=== PATIENT | female | born 1990 | race Caucasian/White ===

== ENCOUNTER 2017-08-04 07:31 | Observation (INO) ==
--- NOTE | 2017-08-04 07:50 | Emergency Department Note ---
Disposition Clinical Impression: Pyelonephritis, Leukocytosis, Tachycardia, Sepsis Disposition: Admitted As Inpatient Condition: Good General Adult HPI - General Chief complaint: ED Abdominal Pain Stated complaint: ABD Pain Time Seen by Provider: 08/04/17 07:47 Source: patient Limitations: no limitations - History of Present Illness Pain Scale: 8 - Related Data Home Medications Medication Instructions Recorded Confirmed Norgestimate-Ethinyl Estradiol 1 tab PO DAILY 08/04/17 08/04/17 [Tri-Sprintec Tablet] Allergies Allergy/AdvReac Type Severity Reaction Status Date / Time hydrocodone [From Vicodin] Allergy See Verified 09/15/15 16:31 Comments Penicillins Allergy See Verified 09/15/15 16:31 Comments Past Medical History - Past Medical History Medical history: Reports: fibromyalgia, RA, other Surgical history: Reports: Psychiatric history: Reports: anxiety - Social History Smoking Status: Current every day smoker Smokeless Tobacco Status: No Alcohol use: Reports: none Drug use: Reports: none Physical Exam - General Limitations: no limitations General appearance: alert, in no apparent distress Course Vital Signs Temperature 98.2 F 08/04/17 07:34 Pulse Rate 133 08/04/17 07:34 Respiratory Rate 16 08/04/17 07:34 Blood Pressure 125/82 08/04/17 07:34 O2 Sat by Pulse Oximetry 100 08/04/17 07:34 Temperature 97.7 F 08/05/17 10:28 Pulse Rate 98 08/05/17 10:28 Respiratory Rate 16 08/05/17 10:28 Blood Pressure 110/71 08/05/17 10:28 O2 Sat by Pulse Oximetry 99 08/05/17 10:28 Oxygen Delivery Oxygen Delivery Room Air Medical Decision Making - Lab Data Result diagrams: 08/05/17 04:33 08/05/17 04:33 Lab Results 08/04/17 08/04/17 08/04/17 Range/Units 07:46 07:46 09:05 WBC 12.9 H (4.3-11.1) K/mcL RBC 4.97 (3.82-4.97) M/mcL Hgb 14.3 (11.5-15.4) g/dL Hct 43.0 (35.3-44.9) % MCV 86.5 (83.0-100.0) fL MCH 28.8 (28.0-33.3) pg MCHC 33.3 (31.6-35.5) g/dL RDW 12.6 (11.5-14.5) % Plt Count 353 (140-400) K/mcL MPV 9.4 (9.4-12.4) fL Immature Gran % 0.5 (0-4) % Seg Neutrophils % 69.7 % Lymphocytes % 19.7 % Monocytes % 7.4 % Eosinophils % 2.2 % Basophils % 0.5 % Neutrophils # 9.0 H (1.6-8.9) K/mcL Lymphocytes # 2.5 (0.6-4.6) K/mcL Monocytes # 1.0 (0.0-1.3) K/mcL Eosinophils # 0.3 (0.0-0.6) K/mcL Basophils # 0.1 (0.0-0.2) K/mcL Sodium (136-145) mEq/L Potassium (3.5-4.5) mEq/L Chloride (98-109) mEq/L Carbon Dioxide (19-29) mEq/L BUN (7-20) mg/dL Creatinine (0.57-1.11) mg/dL Est GFR ( Amer) (> 60) Est GFR (Non-Af Amer) (> 60) BUN/Creatinine Ratio (6-26) Glucose (70-99) mg/dL Calculated Osmolality (280-300) Lactic Acid (0.5-2.2) mmol/L Calcium (8.6-10.8) mg/dL Phosphorus (2.3-4.7) mg/dL Magnesium (1.6-2.6) mg/dL Total Bilirubin (0.2-1.2) mg/dL Direct Bilirubin (0.0-0.5) mg/dL Indirect Bilirubin (0.0-1.2) mg/dL AST (5-34) Units/L ALT (0-55) Units/L Alkaline Phosphatase (38-126) Units/L Serum Total Protein (6.0-8.3) g/dL Albumin (3.5-5.0) g/dL Globulin (2.4-3.5) g/dL Albumin/Globulin Ratio (1.1-2.2) Lipase (8-78) Units/L Urine Color Yellow (Yellow) Urine Clarity Cloudy A (Clear) Urine pH 6.5 (5.0-8.0) pH Units Ur Specific [employer] 1.019 (1.010-1.025) Urine Protein Negative (Neg-Trace) mg/dL Urine Glucose (UA) Normal (Normal) mg/dL Urine Ketones Negative (Negative) mg/dL Urine Blood Large H (Negative) Urine Nitrite Positive A (Negative) Urine Bilirubin Negative (Negative) Urine Urobilinogen Normal (Normal) mg/dL Ur Leukocyte Esterase Moderate H (Negative) Urine Microscopic RBC 3-5 H (0-3) per hpf Urine Microscopic WBC 5-15 H (0-3) per hpf Ur Squamous Epith Cells Few (None-Few) per lpf Urine Bacteria Many H (None-Few) per hpf Hyaline Casts None Seen (None-Few) per lpf Ur Culture Indicated? YES A (NO) Urine Test Negative (Negative) 08/04/17 08/04/17 08/04/17 Range/Units 09:05 10:59 10:59 WBC (4.3-11.1) K/mcL RBC (3.82-4.97) M/mcL Hgb (11.5-15.4) g/dL Hct (35.3-44.9) % MCV (83.0-100.0) fL MCH (28.0-33.3) pg MCHC (31.6-35.5) g/dL RDW (11.5-14.5) % Plt Count (140-400) K/mcL MPV (9.4-12.4) fL Immature Gran % (0-4) % Seg Neutrophils % % Lymphocytes % % Monocytes % % Eosinophils % % Basophils % % Neutrophils # (1.6-8.9) K/mcL Lymphocytes # (0.6-4.6) K/mcL Monocytes # (0.0-1.3) K/mcL Eosinophils # (0.0-0.6) K/mcL Basophils # (0.0-0.2) K/mcL Sodium 140 (136-145) mEq/L Potassium 3.7 (3.5-4.5) mEq/L Chloride 105 (98-109) mEq/L Carbon Dioxide 27 (19-29) mEq/L BUN 6 L (7-20) mg/dL Creatinine 0.67 (0.57-1.11) mg/dL Est GFR ( Amer) > 60 (> 60) Est GFR (Non-Af Amer) > 60 (> 60) BUN/Creatinine Ratio 9 (6-26) Glucose 86 (70-99) mg/dL Calculated Osmolality 287 (280-300) Lactic Acid 1.1 (0.5-2.2) mmol/L Calcium 9.4 (8.6-10.8) mg/dL Phosphorus 2.8 (2.3-4.7) mg/dL Magnesium 2.0 (1.6-2.6) mg/dL Total Bilirubin 0.2 (0.2-1.2) mg/dL Direct Bilirubin 0.1 (0.0-0.5) mg/dL Indirect Bilirubin 0.1 (0.0-1.2) mg/dL AST 16 (5-34) Units/L ALT 27 (0-55) Units/L Alkaline Phosphatase 111 (38-126) Units/L Serum Total Protein 7.7 (6.0-8.3) g/dL Albumin 3.5 (3.5-5.0) g/dL Globulin 4.2 H (2.4-3.5) g/dL Albumin/Globulin Ratio 0.8 L (1.1-2.2) Lipase 11 (8-78) Units/L Urine Color (Yellow) Urine Clarity (Clear) Urine pH (5.0-8.0) pH Units Ur Specific [employer] (1.010-1.025) Urine Protein (Neg-Trace) mg/dL Urine Glucose (UA) (Normal) mg/dL Urine Ketones (Negative) mg/dL Urine Blood (Negative) Urine Nitrite (Negative) Urine Bilirubin (Negative) Urine Urobilinogen (Normal) mg/dL Ur Leukocyte Esterase (Negative) Urine Microscopic RBC (0-3) per hpf Urine Microscopic WBC (0-3) per hpf Ur Squamous Epith Cells (None-Few) per lpf Urine Bacteria (None-Few) per hpf Hyaline Casts (None-Few) per lpf Ur Culture Indicated? (NO) Urine Test (Negative) Attestation Statement - Attestation Attestation: I examined this patient and my medical decision-making was reviewed with the Resident Physician. I agree with the documented findings, disposition and treatment plan as described except to the extent set forth below. [id number] time provided Left sided lower back pain and bilateral lower abdominal pain. She states she had similar pain years ago with a ruptured ovarian cyst. She is tachycardic but does not appear in any acute distress
[2017-08-04 08:00] LABS: Bilirubin,Urine Negative (Negative); Blood,Urine Large (Negative); Clarity,Urine Cloudy (Clear); Color,Urine Yellow (Yellow); Glucose,Urine (UA) Normal (Normal); Ketones,Urine Negative (Negative); Leukocyte Esterase,Urine Moderate (Negative); Nitrite,Urine Positive (Negative); PH,Urine 6.5 pH Units (5.0-8.0); Protein,Urine Negative (Neg-Trace); Specific Gravity,Urine 1.019 (1.010-1.025); Urobilinogen,Urine Normal (Normal)
[2017-08-04 08:03] LABS: Bacteria,Urine Many per hpf (None-Few); Hyaline Casts,Urine None Seen per lpf (None-Few)
[2017-08-04 08:12] LABS: Squamous Epithelial Cell,Urine Few per lpf (None-Few)
--- NOTE | 2017-08-04 08:42 | Emergency Department Note ---
Disposition Clinical Impression: Pyelonephritis, Tachycardia Leukocytosis Qualifiers: Leukocytosis type: unspecified Qualified Code(s): D72.829 - Elevated white blood cell count, unspecified Sepsis Qualifiers: Sepsis type: sepsis due to unspecified organism Qualified Code(s): A41.9 - Sepsis, unspecified organism Disposition: Admitted As Inpatient Condition: Good Referrals: NONE,PCP [Primary Care Provider] - Forms: ED Satisfaction Letter, Work/School Release Time of Disposition: 10:50 Abdominal Pain HPI - General Chief Complaint: ED Abdominal Pain Stated Complaint: ABD Pain Time Seen by Provider: 08/04/17 07:47 Source: patient Mode of arrival: ambulatory Limitations: no limitations Nursing Notes Reviewed: Yes Vital Signs Reviewed: Yes - History of Present Illness HPI Narrative: Patient is a 26-year-old female with past medical history of multiple UTIs, fibromyalgia, RA. She says that she has had multiple UTIs over the past 2 years , has been on multiple different antibiotics. She has not followed up with urology. She presents today due to lower abdominal pain that radiates to bilateral flanks, hematuria. She states that the symptoms started yesterday and have worsened throughout today. She admits to hematuria, bilateral flank pain but denies any dysuria, vaginal bleeding, vaginal discharge, concern for STD, concern for . Denies any vomiting, diarrhea, blood in stool, dark stools, chest pain, shortness of breath. She is unsure of fevers at home. Not currently on any antibiotics. Pain Scale: 8 - Related Data Home Medications Medication Instructions Recorded Confirmed Norgestimate-Ethinyl Estradiol 1 tab PO DAILY 08/04/17 08/04/17 [Tri-Sprintec Tablet] Allergies Allergy/AdvReac Type Severity Reaction Status Date / Time hydrocodone [From Vicodin] Allergy See Verified 09/15/15 16:31 Comments Penicillins Allergy See Verified 09/15/15 16:31 Comments All systems ED: reviewed and negative except as stated. Constitutional: Denies: fever Cardiovascular: Denies: chest pain Respiratory: Denies: dyspnea Gastrointestinal: Reports: abdominal pain. Denies: nausea, vomiting, diarrhea, constipation, hematemesis, melena, hematochezia Genitourinary: Reports: hematuria. Denies: dysuria, discharge Neurological: Denies: weakness, numbness, paresthesias Abdominal Pain PMH - Past Medical History Medical history: Reports: fibromyalgia, RA, other Female Surgical History: Reports: Psychiatric history: Reports: anxiety - Social History Smoking status: Current every day smoker Alcohol use: Reports: none Drug use: Reports: none Physical Exam - General Limitations: no limitations General appearance: alert, other (appears uncomfortable, lying on left side in position) - Head Head exam: atraumatic, normocephalic, normal inspection - Eye Eye exam: Present: normal appearance, PERRL, EOMI - ENT ENT exam: normal exam, normal oropharynx, mucous membranes moist - Neck Neck exam: Present: normal inspection, full ROM, trachea midline - Chest Chest inspection: Present: normal inspection, symmetric chest wall rise - Respiratory Respiratory exam: Present: normal lung sounds bilaterally - Cardiovascular Cardiovascular exam: Present: regular rate, normal rhythm, normal heart sounds - Abdominal Exam Abdominal exam: Present: soft, tenderness ([id number] tenderness of suprapubic, left and right quadrants. Mildly increased tenderness at McBurney' s point. Bilateral CVA tenderness.) - Extremities Exam Extremities exam: Present: normal inspection, full ROM. Absent: tenderness, pedal edema - Back Exam Back exam: Present: normal inspection, full ROM, CVA tenderness (R), CVA tenderness (L) - Neurological Exam Neurological exam: Present: alert, oriented X3. Absent: motor sensory deficit - Psychiatric Psychiatric exam: Present: normal affect, normal mood - Skin Skin exam: Present: warm, dry, intact, normal color Course Course Narrative: Patient was tachycardic on presentation. Otherwise, the rest of the vitals were within normal limits. Concern for pyelonephritis due to suprapubic pain, bilateral flank pain, positive CVA tenderness bilaterally. Urinalysis was obtained which showed signs of UTI. Urine negative. Patient has elevated white blood cell count. She does meet sepsis criteria with tachycardia and elevated white blood cell count, pyelonephritis. CT scan of the abdomen and pelvis was obtained due to lower abdominal pain near McBurney's point. CT showed stranding around the right kidney consistent with pyelonephritis but otherwise no other acute abnormality. Vital Signs Temperature 98.2 F 08/04/17 07:34 Pulse Rate 133 08/04/17 07:34 Respiratory Rate 16 08/04/17 07:34 Blood Pressure 125/82 08/04/17 07:34 O2 Sat by Pulse Oximetry 100 08/04/17 07:34 Temperature 98.2 F 08/04/17 07:34 Pulse Rate 97 08/04/17 10:17 Respiratory Rate 18 08/04/17 10:17 Blood Pressure 126/89 08/04/17 10:17 O2 Sat by Pulse Oximetry 96 08/04/17 10:17 Oxygen Delivery Oxygen Delivery Room Air Abdominal Pain - MDM Narrative Medical decision making narrative: Patient was tachycardic on presentation. Otherwise, the rest of the vitals were within normal limits. Concern for pyelonephritis due to suprapubic pain, bilateral flank pain, positive CVA tenderness bilaterally. Urinalysis was obtained which showed signs of UTI. Urine negative. Patient has elevated white blood cell count. She does meet sepsis criteria with tachycardia and elevated white blood cell count, pyelonephritis. CT scan of the abdomen and pelvis was obtained due to lower abdominal pain near McBurney's point. CT showed stranding around the right kidney consistent with pyelonephritis but otherwise no other acute abnormality. IV levaquin started. Could not give rocephin due to allergy to penicillin. WIll admit for further care. - Medical Records Medical records reviewed: Yes I reviewed the patient's medical records. - Lab Data Lab results reviewed: Yes I reviewed the patient's lab results. Result diagrams: 08/04/17 09:05 08/04/17 09:05 Lab Results 08/04/17 08/04/17 08/04/17 Range/Units 07:46 07:46 09:05 WBC 12.9 H (4.3-11.1) K/mcL RBC 4.97 (3.82-4.97) M/mcL Hgb 14.3 (11.5-15.4) g/dL Hct 43.0 (35.3-44.9) % MCV 86.5 (83.0-100.0) fL MCH 28.8 (28.0-33.3) pg MCHC 33.3 (31.6-35.5) g/dL RDW 12.6 (11.5-14.5) % Plt Count 353 (140-400) K/mcL MPV 9.4 (9.4-12.4) fL Immature Gran % 0.5 (0-4) % Seg Neutrophils % 69.7 % Lymphocytes % 19.7 % Monocytes % 7.4 % Eosinophils % 2.2 % Basophils % 0.5 % Neutrophils # 9.0 H (1.6-8.9) K/mcL Lymphocytes # 2.5 (0.6-4.6) K/mcL Monocytes # 1.0 (0.0-1.3) K/mcL Eosinophils # 0.3 (0.0-0.6) K/mcL Basophils # 0.1 (0.0-0.2) K/mcL Sodium (136-145) mEq/L Potassium (3.5-4.5) mEq/L Chloride (98-109) mEq/L Carbon Dioxide (19-29) mEq/L BUN (7-20) mg/dL Creatinine (0.57-1.11) mg/dL Est GFR ( Amer) (> 60) Est GFR (Non-Af Amer) (> 60) BUN/Creatinine Ratio (6-26) Glucose (70-99) mg/dL Calculated Osmolality (280-300) Calcium (8.6-10.8) mg/dL Total Bilirubin (0.2-1.2) mg/dL Direct Bilirubin (0.0-0.5) mg/dL Indirect Bilirubin (0.0-1.2) mg/dL AST (5-34) Units/L ALT (0-55) Units/L Alkaline Phosphatase (38-126) Units/L Serum Total Protein (6.0-8.3) g/dL Albumin (3.5-5.0) g/dL Globulin (2.4-3.5) g/dL Albumin/Globulin Ratio (1.1-2.2) Lipase (8-78) Units/L Urine Color Yellow (Yellow) Urine Clarity Cloudy A (Clear) Urine pH 6.5 (5.0-8.0) pH Units Ur Specific [place] 1.019 (1.010-1.025) Urine Protein Negative (Neg-Trace) mg/dL Urine Glucose (UA) Normal (Normal) mg/dL Urine Ketones Negative (Negative) mg/dL Urine Blood Large H (Negative) Urine Nitrite Positive A (Negative) Urine Bilirubin Negative (Negative) Urine Urobilinogen Normal (Normal) mg/dL Ur Leukocyte Esterase Moderate H (Negative) Urine Microscopic RBC 3-5 H (0-3) per hpf Urine Microscopic WBC 5-15 H (0-3) per hpf Ur Squamous Epith Cells Few (None-Few) per lpf Urine Bacteria Many H (None-Few) per hpf Hyaline Casts None Seen (None-Few) per lpf Ur Culture Indicated? YES A (NO) Urine Test Negative (Negative) 08/04/17 Range/Units 09:05 WBC (4.3-11.1) K/mcL RBC (3.82-4.97) M/mcL Hgb (11.5-15.4) g/dL Hct (35.3-44.9) % MCV (83.0-100.0) fL MCH (28.0-33.3) pg MCHC (31.6-35.5) g/dL RDW (11.5-14.5) % Plt Count (140-400) K/mcL MPV (9.4-12.4) fL Immature Gran % (0-4) % Seg Neutrophils % % Lymphocytes % % Monocytes % % Eosinophils % % Basophils % % Neutrophils # (1.6-8.9) K/mcL Lymphocytes # (0.6-4.6) K/mcL Monocytes # (0.0-1.3) K/mcL Eosinophils # (0.0-0.6) K/mcL Basophils # (0.0-0.2) K/mcL Sodium 140 (136-145) mEq/L Potassium 3.7 (3.5-4.5) mEq/L Chloride 105 (98-109) mEq/L Carbon Dioxide 27 (19-29) mEq/L BUN 6 L (7-20) mg/dL Creatinine 0.67 (0.57-1.11) mg/dL Est GFR ( Amer) > 60 (> 60) Est GFR (Non-Af Amer) > 60 (> 60) BUN/Creatinine Ratio 9 (6-26) Glucose 86 (70-99) mg/dL Calculated Osmolality 287 (280-300) Calcium 9.4 (8.6-10.8) mg/dL Total Bilirubin 0.2 (0.2-1.2) mg/dL Direct Bilirubin 0.1 (0.0-0.5) mg/dL Indirect Bilirubin 0.1 (0.0-1.2) mg/dL AST 16 (5-34) Units/L ALT 27 (0-55) Units/L Alkaline Phosphatase 111 (38-126) Units/L Serum Total Protein 7.7 (6.0-8.3) g/dL Albumin 3.5 (3.5-5.0) g/dL Globulin 4.2 H (2.4-3.5) g/dL Albumin/Globulin Ratio 0.8 L (1.1-2.2) Lipase 11 (8-78) Units/L Urine Color (Yellow) Urine Clarity (Clear) Urine pH (5.0-8.0) pH Units Ur Specific [place] (1.010-1.025) Urine Protein (Neg-Trace) mg/dL Urine Glucose (UA) (Normal) mg/dL Urine Ketones (Negative) mg/dL Urine Blood (Negative) Urine Nitrite (Negative) Urine Bilirubin (Negative) Urine Urobilinogen (Normal) mg/dL Ur Leukocyte Esterase (Negative) Urine Microscopic RBC (0-3) per hpf Urine Microscopic WBC (0-3) per hpf Ur Squamous Epith Cells (None-Few) per lpf Urine Bacteria (None-Few) per hpf Hyaline Casts (None-Few) per lpf Ur Culture Indicated? (NO) Urine Test (Negative) - Radiology Data Radiology results reviewed: Yes I reviewed the patient's radiology results. Abdomen/Pelvis CT 08/04/17 08:48 IMPRESSION: 1. Subtle cortical striations within the right kidney upper pole may suggest acute right-sided pyelonephritis in the right clinical setting. Clinical correlation is advised. 2. No urinary stones or hydronephrosis. D/ / 08/04/2017 10:11:14 Conrado Figueroa MD / lgray Interpreting Provider: Conrado Figueroa MD S.[facility] - [facility] Situation: Demographics, MOA Background: Presenting Complaint Assessment: Vital Signs, Course and respsone to treatment, Exam Concerns, Patient/Family Expectation, Pertinant Lab Results Recommendation: Barrier(s) to disposition S.B.A.R. Report Given to: Dr. Isela Patrick Repor Time: 10:50
[2017-08-04 09:16] LABS: Basophils # 0.1 K/mcL (0.0-0.2); Basophils % 0.5 %; Eosinophils # 0.3 K/mcL (0.0-0.6); Eosinophils % 2.2 %; Hemoglobin 14.3 g/dL (11.5-15.4); Immature Granulocytes % 0.5 % (0-4); Lymphocytes # 2.5 K/mcL (0.6-4.6); Lymphocytes % 19.7 %; Mean Corpuscular HGB Conc 33.3 g/dL (31.6-35.5); Mean Corpuscular Hemoglobin 28.8 pg (28.0-33.3); Mean Corpuscular Volume 86.5 fL (83.0-100.0); Mean Platelet Volume 9.4 fL (9.4-12.4); Monocytes % 7.4 %; Platelet Count 353 K/mcL (140-400); Red Blood Count 4.97 M/mcL (3.82-4.97); Red Cell Distribution Width 12.6 % (11.5-14.5); Segmented Neutrophils % 69.7 %
[2017-08-04] MEDS ORDERED: *HR* Morphine 2 MG/ML SYRINGE IVP ONE (09:22)
[2017-08-04 09:32] LABS: Alanine Aminotransferase 27 Units/L (0-55); Albumin 3.5 g/dL (3.5-5.0); Albumin/Globulin Ratio 0.8 (1.1-2.2); Alkaline Phosphatase 111 Units/L (38-126); Aspartate Amino Transferase 16 Units/L (5-34); BUN/Creatinine Ratio 9 (6-26); Bilirubin,Direct 0.1 mg/dL (0.0-0.5); Bilirubin,Indirect 0.1 mg/dL (0.0-1.2); Bilirubin,Total 0.2 mg/dL (0.2-1.2); Blood Urea Nitrogen 6 mg/dL (7-20); Calcium 9.4 mg/dL (8.6-10.8); Carbon Dioxide 27 mEq/L (19-29); Chloride 105 mEq/L (98-109); Globulin 4.2 g/dL (2.4-3.5); Glucose 86 mg/dL (70-99); Lipase 11 Units/L (8-78); Osmolality,Calculated 287 (280-300); Potassium 3.7 mEq/L (3.5-4.5); Sodium 140 mEq/L (136-145); Total Protein 7.7 g/dL (6.0-8.3); eGFR For African Americans > 60 (> 60); eGFR For Non-African Americans > 60 (> 60)
[2017-08-04] MEDS: Levofloxacin 500 MG/100 ML 500 MG/100 ML BAG IVPB ONE ×2 (10:16→11:04)
[2017-08-04] MEDS ORDERED: 0.9 % Sodium Chloride 1,000 ML IVC ONE ×2 (10:27→10:39)
[2017-08-04 11:26] LABS: Phosphorous 2.8 mg/dL (2.3-4.7)
[2017-08-04] MEDS ORDERED: Acetaminophen 325 MG TABLET PO PRN (12:19)
[2017-08-04] MEDS ORDERED: Naloxone 0.4 MG/ML INJ IVP PRN (12:19)
[2017-08-04] MEDS ORDERED: Ondansetron 4 MG/2 ML VIAL IVP PRN (12:19)
[2017-08-04] MEDS: *HR* Morphine 2 MG/ML SYRINGE IVP PRN ×3 (12:49→21:30)
[2017-08-04] MEDS: Nicotine 14 MG PATCH.TD24 TD SCH (14:21)
[2017-08-04] MEDS: Pantoprazole 40 MG VIAL IVP SCH (14:22)
--- NOTE | 2017-08-04 14:46 | Internal Med History&Physical ---
<Tobias Weiss - Last Filed: 08/04/17 16:48> Date of Encounter: 08/04/17 Internal Medicine - H&P: HPI History of present illness: Ms. Unger is a 26 year old female Internal Medicine - H&P: Meds Norgestimate-Ethinyl Estradiol [Tri-Sprintec Tablet] 1 tab PO DAILY 08/04/17 [ History] 3 Allergy/AdvReac Type Severity Reaction Status Date / Time hydrocodone [From Vicodin] Allergy See Verified 09/15/15 16:31 Comments Penicillins Allergy See Verified 09/15/15 16:31 Comments All Systems PM: A 10-system review of systems was performed and is negative for pertinent findings except as documented above in the HPI. - Constitutional Vitals: Temp Pulse Resp BP Pulse Ox 98.1 F 91 18 128/82 98 08/04/17 13:52 08/04/17 13:52 08/04/17 13:52 08/04/17 13:52 08/04/17 13:52 Internal Med - H&P Results - Labs CBC & Chem 7: 08/04/17 09:05 08/04/17 09:05 - Attending Attestation I independently obtained history and examined this patient and my medical decision-making was reviewed with the nurse practitioner. I agree with the documented findings, disposition and treatment plan as described. My findings are summarized below: He presented with bilateral flank pain worse on the right. On exam she is in [id number] distress due to pain, heart is tachycardic, lungs are clear. Right CVA tenderness demonstrated Assessment: Pyelonephritis Plan: IV Levaquin, follow up culture and sensitivities and adjust antibiotic therapy accordingly. I have discussed the case with urology. They recommend 2 weeks of antibiotics according to culture sensitivities and follow-up with urology outpatient in 3 weeks. Tobias Weiss MD <Rober Arthur - Last Filed: 08/05/17 10:11> Date of Encounter: 08/05/17 Time of Encounter: 13:00 Assessment and Plan (1) Sepsis Current visit: Yes Status: Acute Patient meets SIRS criteria based on WBC of 12.9, HR of 133 on admission, and suspected UTI infection. Lactic acid ordered. Blood cultures x2 and urine culture ordered. Patient placed on continuous cardiac telemetry d/t tachycardia and supplemental O2 with SpO2 monitoring d/t SOB. Patient received IV boluses of 0.9 NS with follow-up of 125 mL/HR. IVPB levaquin 750 mg daily ordered for infection coverage for UTI and pyelonephritis. Will repeat lactic acid. F/u labs ordered. Patient to be monitored for signs of increasing infection, cardiac , and/or respiratory distress. Qualifiers: Sepsis type: sepsis due to unspecified organism Qualified Code(s): A41.9 - Sepsis, unspecified organism (2) UTI (urinary tract infection) Current visit: Yes Status: Acute Acute on chronic UTI. Patient reports history of UTIs and states she usually does not finish abx due to recurrences. Initial U/A indicative for culture which was ordered. IVPB levaquin 750 mg daily for infection coverage. Will adjust abx coverage based on blood and urine culture results. Monitor I&O. Qualifiers: Urinary tract infection type: site unspecified Hematuria presence: with hematuria Qualified Code(s): N39.0 - Urinary tract infection, site not specified; R31.9 - Hematuria, unspecified; R31.9 - Hematuria, unspecified (3) Pyelonephritis Current visit: Yes Status: Acute Acute pyelonephritis. CT the abdomen and pelvis today shows somewhat cortical striations within the right kidney upper pole which may suggest acute right- sided pyelonephritis in the right clinical setting. Clinical correlation is advised. No urinary stones or hydronephrosis. IVPB levaquin administered in the ED and will be continued. Patient receiving IV 0.9 NS fluid boluses and follow-up of 125 mL/HR for current SIRS criteria. (4) Tobacco abuse counseling Current visit: Yes Status: Acute Hx of chronic tobacco abuse. Patient counseled <10 minutes regarding the dangers and health implications of tobacco abuse as well as measures for quitting. Patient states she is not willing to quit at this time. Nicotine patch ordered while inpatient. (5) Fibromyalgia Current visit: Yes Status: Chronic Hx of chronic fibromyalgia and RA. Patient also reports degenerative disc disease. Patient does not currently take medication for these. Will administer Tylenol 650 mg for mild-moderate pain and morphine for severe pain. Monitor patient's pain scale. (6) DVT prophylaxis Current visit: Yes Status: Acute Lovenox 40 mg daily 0600 for DVT prophylaxis. Internal Medicine - H&P: HPI Chief complaint: Abdominal pain/Flank pain Admitted From: Emergency Dept Plans for Post Hospital Care: Home History of present illness: Ms. Unger is a 26 year old female with a medical history of fibromyalgia, rheumatoid arthritis, and degenerative disc disease presents from the ED with chief complaint of abdominal pain in her lower abdomen and right to left flank pain in her back for the past day which has become progressively worse. Patient reports she has a history of chronic UTIs with unsuccessful resolution. She also states she stopped taking antibiotics due to recurrence of her UTIs. Patient is sexually active and concerned about continuation of her control with constant antibiotics. Patient reports nausea, mild SOB, lower abdominal pain, urinary burning/urgency, and lower back pain and bilateral flank area but denies recent illness, vomiting, fever, chills, lightheadedness, dizziness, chest pain, palpitations, unusual bleeding, vaginal discharge, presyncope, or syncope. Urine test in ED negative. Past Med Surg Social Fam HX - Past Medical History Source: patient, old records reviewed Medical history: fibromyalgia, RA, other (Degenerative disc disease) Psychiatric history: anxiety - Past Surgical History Surgical History: - Social History Smoking Status: Current every day smoker Packs per day: 1 PPD Smokeless Tobacco Status: No Alcohol use: none Drug use: none Current living situation: Home Activity Level: Independent ambulation Recent Out of Country Travel Within the Last 8 Weeks: No Exposure or Possible Exposure to Illness During Travel: No - Family History Mother Race: Family Member Ethnicity: Non- Living Status: Still Living Hx Family Medical Disorders: No Father History Unknown: Yes Race: Family Member Ethnicity: Non- Living Status: Still Living Grandmother Race: Family Member Ethnicity: Non- Living Status: Cause of : Cancer Hx Family Cancer: Yes (Lung, breast) Grandfather Race: Family Member Ethnicity: Non- Living Status: Age at : 64 Cause of : Heart failure Hx Family Cardiac Disorders: Yes (CAD) All Systems PM: A 10-system review of systems was performed and is negative for pertinent findings except as documented above in the HPI. - Constitutional Constitutional: no chills, no fever(s), no night sweats - EENT Eyes: no change in vision, no discharge, no pain, no photophobia Ears: no ear discharge, no ear pain, no tinnitus Nose, mouth and throat: no dysphagia, no nasal discharge, no neck pain, no sore throat - Breasts Breasts: as per HPI - Cardiovascular Cardiovascular ROS IM: as per HPI, dyspnea, no chest pain, no diaphoresis, no lightheadedness, no palpitations, no syncope - Respiratory Respiratory: as per HPI, dyspnea - Gastrointestinal Gastrointestinal: as per HPI, abdominal pain, nausea - Genitourinary Genitourinary: as per HPI, flank pain (Bilateral ), urinary urgency Menstruation: as per HPI - Musculoskeletal Musculoskeletal ROS IM: no numbness, no tingling - Integumentary Integumentary IM: no rash, no unusual bruising - Neurological Neurological ROS: no confusion, no convulsions, no focal weakness, no numbness, no tingling, no tremor(s) - Psychiatric Psychiatric: as per HPI - Endocrine Endocrine IM: as per HPI - Hematologic/Lymphatic Hematologic/Lymphatic: no easy bruising - Allergic/Immunologic Allergic/Immunologic: as per HPI - Constitutional Vitals: Temp Pulse Resp BP Pulse Ox 98.1 F 91 18 128/82 98 08/04/17 13:52 08/04/17 13:52 08/04/17 13:52 08/04/17 13:52 08/04/17 13:52 General appearance: Present: cooperative, mild distress, A&O X 3, pleasant, obese, answers questions appropriately - Head Head exam: Present: atraumatic, normocephalic - Eye Eye exam: Present: PERRL, conjuntiva pink, sclera anicteric Pupils: Present: PERRL - ENT ENT exam: Present: normal exam, normal external ear exam - Neck Neck exam general surgery: Present: normal inspection, supple, trachea midline. Absent: lymphadenopathy - Respiratory Respiratory exam: Present: CTAB. Absent: accessory muscle use, rales, rhonchi, wheezes - Cardiovascular Cardiovascular exam: Present: +S1, +S2, tachycardia - GI/Abdominal GI/Abdominal exam: Present: guarding, normal bowel sounds, soft, tenderness, no peritoneal signs. Absent: distended - Rectal Rectal exam: Present: deferred - Additional comments: exam deferred. - Extremities Exam Extremities exam: Present: warm, radial pulses palpable and symmetrical. Absent : calf tenderness, cyanotic, pedal edema - Back Exam Back exam: Present: normal inspection - Neurological Exam Neurological exam: Present: CN II-XII intact, oriented X3, no focal deficits. Absent: pronater drift, facial droop, speech deficit - Psychiatric Psychiatric exam: Present: normal affect, normal mood - Skin Skin exam: Present: dry, intact Internal Med - H&P Results - Labs CBC & Chem 7: 08/05/17 04:33 08/05/17 04:33 - Diagnostic Studies CT scan - abdomen Additional comments: Impressions Abdomen/Pelvis CT 08/04/17 08:48 IMPRESSION: 1. Subtle cortical striations within the right kidney upper pole may suggest acute right-sided pyelonephritis in the right clinical setting. Clinical correlation is advised. 2. No urinary stones or hydronephrosis. D/ / 08/04/2017 10:11:14 Conrado Figueroa MD / kristine Interpreting Provider: Conrado Figueroa MD
[2017-08-04] MEDS: 0.9 % Sodium Chloride 1,000 ML IVC SCH ×2 (15:05→23:11)
[2017-08-05] MEDS: *HR* Morphine 2 MG/ML SYRINGE IVP PRN ×2 (03:50→07:51)
[2017-08-05 04:50] LABS: Basophils # 0.1 K/mcL (0.0-0.2); Basophils % 0.5 %; Eosinophils # 0.4 K/mcL (0.0-0.6); Eosinophils % 4.2 %; Hematocrit 36.9 % (35.3-44.9); Immature Granulocytes % 0.4 % (0-4); Lymphocytes # 3.1 K/mcL (0.6-4.6); Lymphocytes % 30.9 %; Mean Corpuscular HGB Conc 33.3 g/dL (31.6-35.5); Mean Corpuscular Hemoglobin 29.1 pg (28.0-33.3); Mean Corpuscular Volume 87.4 fL (83.0-100.0); Mean Platelet Volume 9.5 fL (9.4-12.4); Monocytes # 0.9 K/mcL (0.0-1.3); Monocytes % 8.8 %; Neutrophils # 5.6 K/mcL (1.6-8.9); Platelet Count 301 K/mcL (140-400); Red Blood Count 4.22 M/mcL (3.82-4.97); Red Cell Distribution Width 12.9 % (11.5-14.5); Segmented Neutrophils % 55.2 %
[2017-08-05 04:51] LABS: Hemoglobin 12.3 g/dL (11.5-15.4)
[2017-08-05 05:03] LABS: BUN/Creatinine Ratio 6 (6-26); Calcium 8.3 mg/dL (8.6-10.8); Carbon Dioxide 25 mEq/L (19-29); Chloride 111 mEq/L (98-109); Glucose 88 mg/dL (70-99); Magnesium 1.8 mg/dL (1.6-2.6); Osmolality,Calculated 290 (280-300); Potassium 3.9 mEq/L (3.5-4.5); Sodium 142 mEq/L (136-145); eGFR For African Americans > 60 (> 60); eGFR For Non-African Americans > 60 (> 60)
[2017-08-05 05:04] LABS: Blood Urea Nitrogen 4 mg/dL (7-20)
[2017-08-05] MEDS: *HR* Enoxaparin 40 MG/0.4 ML SYRINGE SQ SCH (06:47)
[2017-08-05] MEDS: 0.9 % Sodium Chloride 1,000 ML IVC SCH (07:49)
[2017-08-05] MEDS: Pantoprazole 40 MG VIAL IVP SCH (07:50)
[2017-08-05] MEDS: Levofloxacin 750 MG/150 ML 750 MG/150 ML BAG IVPB SCH (07:50)
[2017-08-05] MEDS: Nicotine 14 MG PATCH.TD24 TD SCH (07:51)
[2017-08-05] MEDS: *HR* OxyCODONE/APAP 5/325 TABLET PO PRN ×2 (11:27→17:51)
--- NOTE | 2017-08-05 11:48 | Internal Med Progress Note ---
Date of Encounter: 08/05/17 Time of Encounter: 11:47 - Assessment and plan (1) Sepsis Current Visit: Yes Status: Acute Assessment and plan: Patient presented with leukocytosis and tachycardia, noted to have UTI. Continue IV antibiotics, remaining plan as below. Qualifiers: Sepsis type: sepsis due to unspecified organism Qualified Code(s): A41.9 - Sepsis, unspecified organism (2) Pyelonephritis Current Visit: Yes Status: Acute Assessment and plan: CT abdomen/pelvis shows changes suggestive of right-sided pyelonephritis. Continue IV Levaquin and follow-up blood and urine cultures. IV hydration. Supportive care. Pain control with when necessary oral Percocet. (3) UTI (urinary tract infection) Current Visit: Yes Status: Acute Assessment and plan: Urinalysis is suggestive of infection with positive nitrite, moderate leukocyte esterase, 5-15 WBC and many bacteria. Preliminary urine culture grows Escherichia coli. Continue IV Levaquin and follow up final cultures. Case discussed with neurology by admitting hospitalist due to history of recurrent UTIs although no data available in our hospital records. Recommend to follow up as outpatient after 14 days of culture driven antibiotic therapy. Qualifiers: Urinary tract infection type: acute pyelonephritis Qualified Code(s): N10 - Acute pyelonephritis (4) Tobacco abuse Current Visit: Yes Status: Chronic Assessment and plan: continue Nicotine transdermal patch; will increase dose to 21mg/day along with PRN nicorette gums as patient continues to have craving; (5) Fibromyalgia Current Visit: Yes Status: Chronic - Subjective Interval history: Feels better. Continues to have lower abdominal cramping pain, radiating to her flanks, no nausea/vomiting, fever/chills. Tolerates diet. - Constitutional Vitals: Temp Pulse Resp BP Pulse Ox 97.7 F 98 16 110/71 99 08/05/17 10:28 08/05/17 10:28 08/05/17 10:28 08/05/17 10:28 08/05/17 10:28 General appearance: Present: cooperative, A&O X 3, obese, answers questions appropriately - Respiratory Respiratory exam: Present: CTAB. Absent: accessory muscle use, rales, rhonchi, wheezes - Cardiovascular Cardiovascular exam: Present: RRR, +S1, +S2. Absent: diastolic murmur, gallop, rubs, systolic murmur - GI/Abdominal GI/Abdominal exam: Present: normal bowel sounds, soft, no peritoneal signs. Absent: distended, tenderness - Extremities Exam Extremities exam: Present: full ROM, warm, radial pulses palpable and symmetrical. Absent: calf tenderness, cyanotic, pedal edema - Neurological Exam Neurological exam: Present: CN II-XII intact, oriented X3, no focal deficits. Absent: pronater drift, facial droop, speech deficit Internal Medicine: Result - Labs CBC & Chem 7: 08/05/17 04:33 08/05/17 04:33 Labs: Short CBC 08/05/17 Range/Units 04:33 WBC 10.1 (4.3-11.1) K/mcL Hgb 12.3 D (11.5-15.4) g/dL Hct 36.9 (35.3-44.9) % Plt Count 301 (140-400) K/mcL Neutrophils # 5.6 (1.6-8.9) K/mcL BMP 08/05/17 04:33 Sodium 142 Potassium 3.9 Chloride 111 H Carbon Dioxide 25 BUN 4 L Creatinine 0.63 Glucose 88 Calcium 8.3 L Consult Discharge Plan - Plan Referrals: NONE,PCP [Primary Care Provider] -
[2017-08-05] MEDS ORDERED: Nicotine 2 MG GUM BC PRN (13:30)
[2017-08-05] MEDS: Nicotine 21 MG PATCH.TD24 TD SCH (13:42)
[2017-08-06] MEDS: *HR* OxyCODONE/APAP 5/325 TABLET PO PRN ×2 (02:54→08:51)
[2017-08-06 04:59] LABS: Basophils # 0.1 K/mcL (0.0-0.2); Basophils % 0.8 %; Eosinophils # 0.5 K/mcL (0.0-0.6); Eosinophils % 5.1 %; Hematocrit 36.9 % (35.3-44.9); Hemoglobin 12.2 g/dL (11.5-15.4); Immature Granulocytes % 0.5 % (0-4); Lymphocytes # 3.3 K/mcL (0.6-4.6); Lymphocytes % 37.1 %; Mean Corpuscular HGB Conc 33.1 g/dL (31.6-35.5); Mean Corpuscular Hemoglobin 28.6 pg (28.0-33.3); Mean Corpuscular Volume 86.6 fL (83.0-100.0); Mean Platelet Volume 9.6 fL (9.4-12.4); Monocytes # 0.6 K/mcL (0.0-1.3); Monocytes % 6.8 %; Neutrophils # 4.4 K/mcL (1.6-8.9); Platelet Count 303 K/mcL (140-400); Red Blood Count 4.26 M/mcL (3.82-4.97); Red Cell Distribution Width 12.7 % (11.5-14.5); Segmented Neutrophils % 49.7 %
[2017-08-06] MEDS: *HR* Enoxaparin 40 MG/0.4 ML SYRINGE SQ SCH (05:14)
[2017-08-06] MEDS: Levofloxacin 750 MG/150 ML 750 MG/150 ML BAG IVPB SCH (08:46)
[2017-08-06] MEDS: Nicotine 21 MG PATCH.TD24 TD SCH (08:51)
[2017-08-06] MEDS ORDERED: levoFLOXacin 250 MG TABLET PO ONE (10:07)
[2017-08-06 11:01] VITALS: BP 120/77
--- NOTE | 2017-08-06 12:25 | Discharge Summary ---
Date of Encounter: 08/06/17 Time of Encounter: 11:30 - Discharge Diagnosis (1) Sepsis Priority: Primary Status: Resolved Qualifiers: Sepsis type: Escherichia coli Qualified Code(s): A41.51 - Sepsis due to Escherichia coli [E. coli] (2) Pyelonephritis Priority: Primary Status: Acute (3) UTI (urinary tract infection) Priority: Primary Status: Acute Qualifiers: Urinary tract infection type: acute pyelonephritis Qualified Code(s): N10 - Acute pyelonephritis (4) Tobacco abuse Priority: Secondary Status: Chronic (5) Fibromyalgia Priority: Secondary Status: Chronic - Discharge Medications Prescriptions: levoFLOXacin [Levaquin] 750 mg PO DAILY 11 Days tablet Home Medications: Norgestimate-Ethinyl Estradiol [Tri-Sprintec Tablet] 1 tab PO DAILY 08/04/17 [ History] levoFLOXacin [Levaquin] 750 mg PO DAILY 11 Days tablet 08/06/17 [Rx] Allergies/Adverse Reactions: 3 Allergy/AdvReac Type Severity Reaction Status Date / Time hydrocodone [From Vicodin] Allergy See Verified 09/15/15 16:31 Comments Penicillins Allergy See Verified 09/15/15 16:31 Comments Date of admission: 08/04/17 10:59 Primary care physician: PCP NONE Discharging clinician: Nava Branch Anticipated date of discharge: 08/06/17 - Patient Status Disposition: Home, Self-Care Condition: Good Functional capacity at discharge: independent ambulation Overall status at discharge: patient is back to baseline - Discharge Instructions Instructions: Urinary Tract Infection in Women (DC), Sepsis (DC) Follow Up With: NONE,PCP [Primary Care Provider] - Dutch Ayala MD [Partnered Physician] - 08/30/17 9:45 am Additional Instructions: F/up with PCP in 1-2 weeks F/up with Urology in 4-6 weeks - Diet and Activity Activity: resume usual activities as tolerated Diet: advance to your usual diet, regular diet Hospital course: Ms. Unger is a 26 year old female with the above medical problems, admitted with nausea and lower abdominal cramps. Patient was noted to have sepsis with tachycardia and leukocytosis and urinalysis was suggestive of infection. CT abdomen/pelvis showed right-sided pyelonephritis. She was started on IV hydration, IV antibiotics-Levaquin and pain control with when necessary IV morphine and Percocet. Blood cultures remained negative. Urine culture eventually grew pansensitive Escherichia coli. Patient is clinically much better with improved tachycardia and leukocytosis and is currently medically stable for discharge with oral antibiotics. She is also encouraged to follow up with urology as outpatient due to history of recurrent UTIs. - Time Spent with Patient Total time spent providing and/or coordinating discharge services: Greater than 30 minutes (40 min) - Constitutional Vitals: Temp Pulse Resp BP Pulse Ox 98.1 F 83 14 120/77 99 08/06/17 10:59 08/06/17 10:59 08/06/17 10:59 08/06/17 10:59 08/06/17 10:59 General appearance: Present: A&O X 3, obese, answers questions appropriately - Cardiovascular Cardiovascular exam: Present: RRR, +S1, +S2. Absent: diastolic murmur, gallop, rubs, systolic murmur
[2017-08-07] MEDS ORDERED: levoFLOXacin 750 MG TABLET PO SCH (09:00)
== END 2017-08-06 13:28 | disposition home or self-care (01) ==
LOC: EMEROO 07:31 → 3ANU 07:31
PROVIDERS: ADMIT Internal Medicine; ATTEND Internal Medicine